=== PATIENT | male | born 1950 ===

== ENCOUNTER 2017-11-04 02:31 | Outpatient (CLI) | payer MEDICARE | END 2017-11-04 23:59 | disposition home or self-care (01) | LOC: DIABETIC 02:31 | PROVIDERS: ATTEND Specialist | DX: E11.9 Type 2 diabetes mellitus without complications (principal) | CPT/HCPCS: G0108 ==

== ENCOUNTER 2018-01-23 05:11 | Outpatient (CLI) | payer MEDICARE | END 2018-01-23 23:59 | disposition home or self-care (01) | LOC: DIABETIC 05:11 | PROVIDERS: ATTEND Specialist | DX: E11.9 Type 2 diabetes mellitus without complications (principal) | CPT/HCPCS: G0108 ==

== ENCOUNTER 2018-05-08 08:22 | Outpatient (CLI) | payer MEDICARE | END 2018-05-08 23:59 | disposition home or self-care (01) | LOC: DIABETIC 08:22 | PROVIDERS: ATTEND Specialist | DX: E11.9 Type 2 diabetes mellitus without complications (principal); E66.9 Obesity, unspecified; Z68.36 Body mass index [BMI] 36.0-36.9, adult; Z71.3 Dietary counseling and surveillance | CPT/HCPCS: G0108 ==

== ENCOUNTER 2018-08-24 00:09 | Outpatient (CLI) | payer MEDICARE | END 2018-08-24 23:59 | disposition home or self-care (01) | LOC: DIABETIC 00:09 | PROVIDERS: ATTEND Specialist | DX: E11.9 Type 2 diabetes mellitus without complications (principal); Z79.84 Long term (current) use of oral hypoglycemic drugs; Z88.8 Allergy status to other drugs, medicaments and biological substances | CPT/HCPCS: G0108 ==